=== PATIENT | male | born 1960 | race African-American/Black ===

== ENCOUNTER 2017-10-10 10:09 | Emergency (ER) | payer SELFPAY ==
[~2017-10-10] VITALS: Ht 188 cm; Wt 98.0 kg
[~2017-10-10 10:09] MED LIST: 1-ME1LIQ PO; LISI-366 PO; TAMS0.4C67 PO; TERA1 PO
[2017-10-10 10:27] VITALS: BP 156/110; PULSE 66; RESP 16; TEMP 98.6; O2SAT 97
[2017-10-10 11:05] LABS: AUTOMATED NEUTROPHIL # 2.3 TH/MM3 (1.8-7.7); BASOPHIL % 0.5 % (0.0-2.0); BILIRUBIN, URINE NEG (NEG); BLOOD, URINE NEG (NEG); EOSINOPHIL # 0.1 TH/MM3 (0-0.4); EOSINOPHIL % 1.5 % (0.0-4.0); GLUCOSE,URINE NEG (NEG); HEMATOCRIT 44.3 % (39.0-51.0); HEMOGLOBIN 14.6 GM/DL (13.0-17.0); KETONE, URINE NEG (NEG); LYMPHOCYTE # 2.2 TH/MM3 (1.0-4.8); MEAN CELL VOLUME 86.9 FL (80.0-100.0); MEAN CORPUSCULAR HEMOGLOBIN 28.6 PG (27.0-34.0); MEAN PLATELET VOLUME 9.5 FL (7.0-11.0); MONO % 13.7 % (0.0-8.0); MONOCYTE # 0.7 TH/MM3 (0-0.9); NEUT % 43.3 % (16.0-70.0); NITRITE,URINE NEG (NEG); PH, URINE 6.5 (5.0-8.5); PLATELET COUNT 222 TH/MM3 (150-450); RED BLOOD COUNT 5.09 MIL/MM3 (4.50-5.90); RED CELL DISTRIBUTION WIDTH 14.2 % (11.6-17.2); SQUAMOUS EPITHELIAL CELL URINE <1 /hpf (0-5); URINE COLOR YELLOW (YELLW/STRAW); URINE LEUKOCYTE ESTERASE TRACE (NEG); WHITE BLOOD COUNT 5.3 TH/MM3 (4.0-11.0)
[2017-10-10 11:18] LABS: ALBUMIN 3.6 GM/DL (3.4-5.0); AST (GOT) 19 U/L (15-37); BICARBONATE 23.4 MEQ/L (21.0-32.0); BLOOD UREA NITROGEN 17 MG/DL (7-18); CALCIUM 8.8 MG/DL (8.5-10.1); CHLORIDE 106 MEQ/L (98-107); CREATININE 1.47 MG/DL (0.60-1.30); GLOMERULAR FILTRATION RATE 60 ML/MIN (>89); GLUCOSE,RANDOM 133 MG/DL (74-106); SODIUM (NA) 139 MEQ/L (136-145)
[2017-10-10 11:19] LABS: ALT (GPT) 20 U/L (12-78)
[2017-10-10 11:21] LABS: ALKALINE PHOSPHATASE 70 U/L (45-117); TOTAL BILIRUBIN ADULT 0.5 MG/DL (0.2-1.0); TOTAL PROTEIN 6.9 GM/DL (6.4-8.2)
--- NOTE | 2017-10-10 12:06 | PD ---
HPI Chief Complaint: Complaint Time Seen by Provider: 11:51 Travel History International Travel<30 days: No Contact w/Intl Traveler<30days: No Traveled to known affect area: No History of Present Illness HPI 56-year-old male complains of hematuria, pelvic pressure and urinary hesitancy. Patient states that his symptoms started a month ago. Patient has a history of enlarged prostate and was on Flomax in the past. Patient states that he was on Flomax however he ran out of Flomax because of financial situation. Patient has history of hypertension on amlodipine now. Patient states that the urine has been pinkish reddish patient for the past month. Patient states that he has difficulty starting the stream and difficulty urinating intermittently recently. Patient denies any back pain. Patient denies any fever chills. Patient states that he has intermittent pelvic pressure also. PFSH Past Medical History Arthritis: Yes Asthma: No Autoimmune Disease: No Heart Rhythm Problems: No Cardiovascular Problems: Yes High Cholesterol: No Chest Pain: No Congestive Heart Failure: No COPD: No Cerebrovascular Accident: No Gastrointestinal Disorders: Yes GERD: No Headaches: Yes Hepatitis: No Hiatal Hernia: No Hypertension: Yes Musculoskeletal: Yes Neurologic: No Respiratory: No Myocardial Infarction: No Seizures: No Sleep Apnea: No Ulcer: Yes Tetanus Vaccination: Unknown Influenza Vaccination: No Past Surgical History Surgical History: No Previous Surgery Abdominal Surgery: No AICD: No Cardiac Surgery: No Ear Surgery: No Endocrine Surgery: No Eye Surgery: No Genitourinary Surgery: No Gynecologic Surgery: No Oral Surgery: No Pacemaker: No Thoracic Surgery: No Other Surgery: No Social History Alcohol Use: Yes (drinks on weekends beer 2-3 cans a day) Tobacco Use: Yes (smokles 1/2 ppd) Substance Use: Yes (pot) Allergies-Medications (Allergen,Severity, Reaction): Coded Allergies: No Known Allergies (Verified Adverse Reaction, Unknown, 10/10/17) Reported Meds & Prescriptions Reported Meds & Active Scripts Active No Active Prescriptions or Reported Medications Review of Systems General / Constitutional: No: Fever Eyes: No: Visual changes HENT: No: Headaches Cardiovascular: No: Chest Pain or Discomfort Respiratory: No: Shortness of Breath Gastrointestinal: No: Abdominal Pain Genitourinary: Positive: Urgency, Hematuria, No: Dysuria Musculoskeletal: No: Pain Skin: No Rash Neurologic: No: Weakness Psychiatric: No: Depression Endocrine: No: Polydipsia Hematologic/Lymphatic: No: Easy Bruising Physical Exam Narrative GENERAL: Well-nourished, well-developed patient. SKIN: Focused skin assessment warm/dry. HEAD: Normocephalic. EYES: No scleral icterus. No injection or drainage. NECK: Supple, trachea midline. No JVD or lymphadenopathy. CARDIOVASCULAR: Regular rate and rhythm without murmurs, gallops, or rubs. RESPIRATORY: Breath sounds equal bilaterally. No accessory muscle use. GASTROINTESTINAL: Abdomen soft, non-tender, nondistended. MUSCULOSKELETAL: No cyanosis, or edema. BACK: Nontender without obvious deformity. No CVA tenderness. exam normal. Data Data Last Documented VS Vital Signs Date Time Temp Pulse Resp B/P (MAP) Pulse Ox O2 Delivery O2 Flow Rate FiO2 10/10/17 10:27 98.6 66 16 156/110 (125) 97 Orders Orders Complete Blood Count With Diff (10/10/17 10:31) Comprehensive Metabolic Panel (10/10/17 10:31) Urinalysis - C+S If Indicated (10/10/17 10:31) Ct Abd/Pel W/O Iv Contrast (10/10/17 12:00) Labs Laboratory Tests Test 10/10/17 10:40 White Blood Count 5.3 TH/MM3 Red Blood Count 5.09 MIL/MM3 Hemoglobin 14.6 GM/DL Hematocrit 44.3 % Mean Corpuscular Volume 86.9 FL Mean Corpuscular Hemoglobin 28.6 PG Mean Corpuscular Hemoglobin Concent 33.0 % Red Cell Distribution Width 14.2 % Platelet Count 222 TH/MM3 Mean Platelet Volume 9.5 FL Neutrophils (%) (Auto) 43.3 % Lymphocytes (%) (Auto) 41.0 % Monocytes (%) (Auto) 13.7 % Eosinophils (%) (Auto) 1.5 % Basophils (%) (Auto) 0.5 % Neutrophils # (Auto) 2.3 TH/MM3 Lymphocytes # (Auto) 2.2 TH/MM3 Monocytes # (Auto) 0.7 TH/MM3 Eosinophils # (Auto) 0.1 TH/MM3 Basophils # (Auto) 0.0 TH/MM3 CBC Comment DIFF FINAL Differential Comment Urine Color YELLOW Urine Turbidity CLEAR Urine pH 6.5 Urine Specific [place] 1.026 Urine Protein TRACE mg/dL Urine Glucose (UA) NEG mg/dL Urine Ketones NEG mg/dL Urine Occult Blood NEG Urine Nitrite NEG Urine Bilirubin NEG Urine Urobilinogen 2.0 MG/DL Urine Leukocyte Esterase TRACE Urine RBC LESS THAN 1 /hpf Urine WBC 3 /hpf Urine Squamous Epithelial Cells <1 /hpf Microscopic Urinalysis Comment CULT NOT INDICATED Blood Urea Nitrogen 17 MG/DL Creatinine 1.47 MG/DL Random Glucose 133 MG/DL Total Protein 6.9 GM/DL Albumin 3.6 GM/DL Calcium Level 8.8 MG/DL Alkaline Phosphatase 70 U/L Aspartate Amino Transf (AST/SGOT) 19 U/L Alanine Aminotransferase (ALT/SGPT) 20 U/L Total Bilirubin 0.5 MG/DL Sodium Level 139 MEQ/L Potassium Level 3.8 MEQ/L Chloride Level 106 MEQ/L Carbon Dioxide Level 23.4 MEQ/L Anion Gap 10 MEQ/L Estimat Glomerular Filtration Rate 60 ML/MIN MDM Medical Decision Making Medical Screen Exam Complete: Yes Emergency Medical Condition: Yes Interpretation(s) 1328 PM. CBC within normal limits. CMP within normal limits. Creatinine 1.47. GFR 60. UA negative. 1454 PM. Last Impressions Abdomen/Pelvis CT 10/10/17 1200 Signed Impressions: CONCLUSION: 1. Prostatomegaly with BPH and scattered calcific deposits. 2. No evidence of nephrolithiasis, hydronephrosis or hydroureter. 3. Simple right renal cyst. 4. Otherwise normal exam. Differential Diagnosis Differential diagnosis including BPH, urethritis, UTI, nephrolithiasis. Narrative Course 56-year-old male with hematuria and urinary difficulty. History of prostatic hypertrophy. Diagnosis Primary Impression: BPH (benign prostatic hyperplasia) Qualified Codes: N40.1 - Benign prostatic hyperplasia with lower urinary tract symptoms; R39.11 - Hesitancy of micturition Additional Impression: Renal insufficiency Patient Instructions: General Instructions Additional Instructions: Flomax as directed. Follow-up with urologist. Return if worse. Med/Other Pt SpecificInfo: Prescription(s) given Scripts Tamsulosin (Flomax) 0.4 Mg Cap 0.4 MG PO HS for Manage Prostate Problems, #30 CAP 0 Refills Prov: Anshul Hand MD 10/10/17 Disposition: 01 DISCHARGE HOME Condition: Stable Anshul Hand MD Oct 10, 2017 12:06
--- NOTE | 2017-10-10 14:25 | RADRPT ---
EXAM DATE: 10/10/2017 1:52 PM EDT AGE/SEX: 56 years / Male INDICATIONS: Difficulty urinating, blood in urine. CLINICAL DATA: This is the patient's initial encounter. Patient reports that signs and symptoms have been present for 1 day and indicates a pain score of 0/10. MEDICAL/SURGICAL HISTORY: Hypertension. Ulcers. None. RADIATION DOSE: 6.88 CTDI (mGy) COMPARISON: No prior exams available for comparison. TECHNIQUE: Multiple contiguous axial images were obtained through the abdomen. Images were obtained using multiple row detector helical technique. Using dose reduction techniques, radiation dose was ke pt as low as reasonably achievable to obtain optimal diagnostic quality images. FINDINGS: Lower Lungs: The visualized lower lungs are clear. Liver: The liver has a homogeneous density without space-occupying lesion. There is no dilation of th e biliary tree. Spleen: Homogeneous density without enlargement. Pancreas: Unremarkable without mass or calcification. Kidneys: Normal in size and shape. No evidence of mass or hydronephrosis. A 1.3 cm simple cyst is no montse off the midpole of the right kidney. Adrenal Glands: Unremarkable. Aorta: The aorta and proximal iliac vessels are grossly unremarkable without aneurysmal dilation. Bowel/Mesentery: The bowel loops are grossly unremarkable. The cecum and sigmoid colon have a normal configuration. Abdominal Wall: Intact. Retroperitoneum: No evidence of adenopathy in the retrocrural, para-aortic, or deep pelvic regions. Bladder: Contours are smooth. Reproductive Organs: The prostate gland is enlarged measuring 6.3 x 4.8 x 5.4 cm in size. This repres ents volume of 85 cc. Gland projects into the base of the bladder. Calcific deposits are identified p osteriorly within the transition zone. No abnormal masses or calcifications seen. Inguinal: The inguinal region is unremarkable without evidence of adenopathy. Bony Structures: Unremarkable. CONCLUSION: 1. Prostatomegaly with BPH and scattered calcific deposits. 2. No evidence of nephrolithiasis, hydronephrosis or hydroureter. 3. Simple right renal cyst. 4. Otherwise normal exam. Electronically signed by: Luis Carlos Oro MD 10/10/2017 2:24 PM EDT
[2017-10-10] MEDS ORDERED: TAMS5CAP PO (14:57)
== END 2017-10-10 15:12 | disposition home or self-care (01) ==
LOC: NEPE 10:09
DX: N40.1 Benign prostatic hyperplasia with lower urinary tract symptoms (principal); R39.11 Hesitancy of micturition; R31.9 Hematuria, unspecified; N28.1 Cyst of kidney, acquired; I10 Essential (primary) hypertension; F17.210 Nicotine dependence, cigarettes, uncomplicated
CPT/HCPCS: 74176; 80053; 81001; 85025